=== PATIENT | female | born 1970 | race Caucasian/White ===

== ENCOUNTER → 2021-04-14 | Emergency (ER) | payer OTHER ==
[~2021-04-14] VITALS: Ht 172.7 cm; Wt 81.6 kg
[~2021-04-14] MED LIST: BUTALB-ASPIRIN1 EACH PO
== END | disposition home or self-care (01) ==
LOC: ER 08:31
DX: G43.811 Other migraine, intractable, with status migrainosus (principal); G44.89 Other headache syndrome; R03.0 Elevated blood-pressure reading, without diagnosis of hypertension; H53.143 Visual discomfort, bilateral